=== PATIENT | female | born 1945 | race Caucasian/White ===

== ENCOUNTER 2021-12-04 06:24 | Inpatient (IN) ==
[~2021-12-04 06:24] MED LIST: Acetaminophen IV 1,000 MG/100 ML BAG IVPB ONE; Famotidine 20 MG/2 ML VIAL IVP ONE
[2021-12-04] MEDS ORDERED: CeFAZolin Syr 2,000MG/20 ML 2,000 MG/20 ML SYRINGE IVPB ONE (06:34)
[2021-12-04] MEDS ORDERED: Ropivacaine/PF 0.5% 30 ML VIAL ONE (06:37)
[2021-12-04] MEDS ORDERED: ROPIVACAINE/PF/NS 0.25% 1 EACH SYRINGE INTRAART ONE (06:37)
[2021-12-04] MEDS ORDERED: Ondansetron 4 MG/2 ML VIAL ONE (06:38)
[2021-12-04] MEDS ORDERED: *HR* Succinylcholine 200 MG/10 ML VIAL IVP ONE (06:38)
[2021-12-04] MEDS ORDERED: Lidocaine -MPF 2% 2 ML VIAL ONE (06:38)
[2021-12-04] MEDS ORDERED: Tranexamic Acid 1,000 MG/10 ML VIAL ONE ×2 (06:39→07:55)
[2021-12-04] MEDS ORDERED: *HR* FentaNYL (PF) 100 MCG/2 ML VIAL ONE ×2 (06:39→09:26)
[2021-12-04] MEDS ORDERED: *HR* Midazolam HCl 2 MG/2 ML VIAL ONE (06:39)
[2021-12-04] MEDS ORDERED: EPHEDrine 50 MG/ML VIAL ONE (06:39)
[2021-12-04] MEDS ORDERED: Ringers Solution, Lactated 1,000 ML IVC SCH ×3 (06:45→11:17)
[2021-12-04] MEDS ORDERED: TOTAL JOINT MIXTURE (100ML) INTRAART ONE (07:30)
[2021-12-04] MEDS ORDERED: Povidone-Iodine 45 ML, Sodium Chloride IRRigation 1,000 ML IR ONE (07:30)
[2021-12-04] MEDS ORDERED: Ondansetron 4 MG/2 ML VIAL IVP PRN ×2 (10:24→11:17)
[2021-12-04] MEDS ORDERED: Naloxone 0.4 MG/ML INJ IVP PRN ×2 (10:24→11:17)
[2021-12-04] MEDS ORDERED: *HR* Promethazine 25 MG/ML VIAL IM PRN ×2 (10:24→11:17)
[2021-12-04] MEDS ORDERED: MOM Conc 10 ML UD.LIQ PO PRN ×2 (10:24→11:17)
[2021-12-04] MEDS ORDERED: *HR* OxyCODONE Immed Rel 5 MG TABLET PO PRN (10:24)
[2021-12-04] MEDS ORDERED: Sennosides 8.6 MG TABLET PO PRN ×2 (10:24→11:17)
[2021-12-04] MEDS ORDERED: CeFAZolin 2 GM/120 ML BAG IVPB SCH (16:00)
[2021-12-04] MEDS ORDERED: Ascorbic Acid 500 MG TABLET PO SCH (17:00)
[2021-12-04] MEDS: Ascorbic Acid 500 MG TABLET PO SCH (17:07)
[2021-12-04] MEDS: CeFAZolin 2 GM/120 ML BAG IVPB SCH ×2 (17:09→23:33)
[2021-12-04] MEDS: *HR* OxyCODONE Immed Rel 5 MG TABLET PO PRN (21:27)
[2021-12-05] MEDS: *HR* OxyCODONE Immed Rel 5 MG TABLET PO PRN ×2 (05:06→10:44)
[2021-12-05 07:52] LABS: Basophils % 0.2 %; Hematocrit 31.4 % (35.3-44.9); Hemoglobin 10.2 g/dL (11.5-15.4); Immature Granulocytes % 0.3 % (0-4); Lymphocytes # 0.9 K/mcL (0.6-4.6); Lymphocytes % 7.5 %; Mean Corpuscular HGB Conc 32.5 g/dL (31.6-35.5); Mean Corpuscular Hemoglobin 31.2 pg (28.0-33.3); Mean Platelet Volume 10.7 fL (9.4-12.4); Monocytes # 0.9 K/mcL (0.0-1.3); Monocytes % 7.7 %; Neutrophils # 10.3 K/mcL (1.6-8.9); Platelet Count 154 K/mcL (140-400); Red Blood Count 3.27 M/mcL (3.82-4.97); Red Cell Distribution Width 15.1 % (11.5-14.5); Segmented Neutrophils % 84.3 %; White Blood Count 12.2 K/mcL (4.3-11.1)
[2021-12-05 07:56] LABS: BUN/Creatinine Ratio 29 (6-26); Blood Urea Nitrogen 23 mg/dL (8-23); Calcium 8.4 mg/dL (8.6-10.3); Carbon Dioxide 27 mEq/L (23-29); Chloride 108 mEq/L (98-107); Glucose 109 mg/dL (70-105); Osmolality,Calculated 294 (280-300); Sodium 140 mEq/L (136-145); eGFR For African Americans > 60 (> 60); eGFR For Non-African Americans > 60 (> 60)
[2021-12-05] MEDS ORDERED: Multivit/Ca/Min/Fe/FA 1 TAB TABLET PO SCH ×2 (09:00)
[2021-12-05] MEDS ORDERED: Celecoxib 200 MG CAPSULE PO SCH (09:00)
[2021-12-05] MEDS ORDERED: amLODIPine 5 MG TABLET PO SCH (09:00)
[2021-12-05] MEDS ORDERED: Loratadine 10 MG TABLET PO SCH (09:00)
[2021-12-05] MEDS ORDERED: Metoprolol XL (24 HR) Succ 25 MG TAB.ER.24H PO SCH (09:00)
[2021-12-05] MEDS ORDERED: Aspirin Enteric Coated 325 MG Tablet PO SCH ×2 (09:32→10:27)
[2021-12-05] MEDS: Ascorbic Acid 500 MG TABLET PO SCH (09:35)
[2021-12-05 10:58] VITALS: BP 144/76; PULSE 85; TEMP 98.2; O2SAT 96
== END 2021-12-05 14:53 | disposition home or self-care (01) | DRG 470 ==
LOC: SDCAOSI 06:24 → 4WAOSI 11:25
PROVIDERS: ADMIT Orthopaedic Surgery; ATTEND Orthopaedic Surgery